=== PATIENT | male | born 1970 | race Caucasian/White ===

== ENCOUNTER 2024-07-05 11:00 | Emergency (ER) | payer BC ==
[~2024-07-05] VITALS: Ht 170.2 cm; Wt 64.0 kg
[2024-07-05 12:26] LABS: BASOPHILS % (AUTO) 0.4 % (0.0-2.0); EOSINOPHILS # (AUTO) 0.1 K/uL (0.0-0.7); EOSINOPHILS % (AUTO) 0.8 % (0.0-7.0); HEMATOCRIT 37.5 % (36.7-47.1); HEMOGLOBIN 12.7 g/dL (12.5-16.3); LYMPHOCYTES # (AUTO) 2.1 K/uL (0.8-4.8); MEAN CORPUSCULAR HEMOGLOBIN 29.7 uug (23.8-33.4); MEAN CORPUSCULAR HGB CONC 34 g/dL (32.5-36.3); MEAN CORPUSCULAR VOLUME 87.9 fL (73.0-96.2); MONOCYTES # (AUTO) 0.7 K/uL (0.1-1.30); MONOCYTES % (AUTO) 6.7 % (0.0-11.0); NEUTROPHILS # (AUTO) 7.1 K/uL (1.8-8.9); NEUTROPHILS % (AUTO) 71.1 % (38.5-71.5); PLATELET COUNT (AUTO) 229 K/uL (152-348); RED BLOOD CELL COUNT(AUTO) 4.27 MIL/uL (4.06-5.63); RED CELL DISTRIBUTION WIDTH 13.6 % (12.1-16.2)
[2024-07-05 12:29] LABS: DIFFERENTIAL COMMENT 1
[2024-07-05 12:38] LABS: CALCIUM 8.9 mg/dL (8.5-10.1); CREATININE 0.9 mg/dL (0.6-1.3); MAGNESIUM 1.8 mg/dL (1.8-2.4); POTASSIUM 3.3 mmol/L (3.5-5.1)
[2024-07-05] MEDS ORDERED: NIFEDIPINE (12:51)
[2024-07-05] MEDS ORDERED: POTASSIUM BICARBONATE/CIT AC 25 MEQ TABLET.EFF ONE (12:57)
[2024-07-05] MEDS: POTASSIUM BICARBONATE/CIT AC 25 MEQ TABLET.EFF PO ONE (13:03)
[2024-07-05] MEDS: MAGNESIUM CHLORIDE 64 MG TABLET.SA PO SCH (13:09)
[2024-07-05 13:23] VITALS: BP 120/61; O2SAT 99
[2024-07-05] MEDS ORDERED: FLAS1EAC2 TP (13:35)
[2024-07-05] MEDS ORDERED: FLAS1KIT2 TP (13:35)
== END 2024-07-05 13:22 | disposition home or self-care (01) ==
LOC: ER 11:00
DX: K60.2 Anal fissure, unspecified (principal); D64.9 Anemia, unspecified; E78.5 Hyperlipidemia, unspecified; E87.6 Hypokalemia; R73.03 Prediabetes; J44.9 Chronic obstructive pulmonary disease, unspecified
CPT/HCPCS: 36415; 83735; 85025; A4606; A4663